=== PATIENT | female | born 1965 | race Caucasian/White ===

== ENCOUNTER 2022-07-12 10:47 | Day surgery (SDC) | payer OTHER ==
[2022-07-12] MEDS ORDERED: LIDOCAINE HCL 2% 100 MG/5 ML IJ ONE (10:48)
[2022-07-12 11:10] LABS: HCG URINE TEST NEGATIVE (NEGATIVE)
[2022-07-12] MEDS ORDERED: DIPRIVAN 200 MG/20 ML IV ONE ×2 (12:05→12:12)
[2022-07-12] MEDS ORDERED: Lactated Ringers 1,000 ML IV ONE (15:05)
--- NOTE | 2022-07-12 19:06 | XRAY ---
Indication: Bilateral L4-S1 MBB. Intraoperative fluoroscopy provided for 20 seconds. Single digital spot image submitted for interpretation demonstrates posterior needle tips projecting over the expected left and right L4-S1 nerve roots. Correlate with intraoperative findings/report.
--- NOTE | 2022-07-12 19:25 | XRAY ---
20 seconds of fluoroscopy was used in surgery for a bilateral L4-S1 MBB.
== END 2022-07-12 12:35 | disposition home or self-care (01) ==
LOC: SDC-PAIN 10:47
PROVIDERS: ATTEND Psychiatry & Neurology Pain Medicine
DX: M47.816 Spondylosis without myelopathy or radiculopathy, lumbar region (principal); Z79.899 Other long term (current) drug therapy
CPT/HCPCS: 64493; 64494; 72020; 77002; 81025; J2704

== ENCOUNTER 2022-09-06 10:48 | Day surgery (SDC) | payer OTHER ==
[2022-09-06] MEDS ORDERED: BUPIVACAINE 0.5% VIAL IJ ONE (10:49)
[2022-09-06] MEDS ORDERED: Depo-Medrol 40 MG/ML IM ONE (10:49)
[2022-09-06 12:23] LABS: HCG URINE TEST NEGATIVE (NEGATIVE)
[2022-09-06] MEDS ORDERED: DIPRIVAN 200 MG/20 ML IV ONE (12:45)
--- NOTE | 2022-09-06 15:10 | XRAY ---
Indication: Bilateral L4-S1 MBB. Intraoperative fluoroscopy provided for 17 seconds. Single digital spot image submitted for interpretation demonstrates posterior needle tips projecting over the expected left and right L4-S1 nerve roots. Correlate with intraoperative findings/report.
--- NOTE | 2022-09-06 15:16 | XRAY ---
17 seconds of fluoroscopy was used in surgery for a bilateral L4-S1 MBB.
[2022-09-06] MEDS ORDERED: Lactated Ringers 1,000 ML IV ONE (16:47)
== END 2022-09-06 13:15 | disposition home or self-care (01) ==
LOC: SDC-PAIN 10:48
PROVIDERS: ATTEND Psychiatry & Neurology Pain Medicine
DX: M47.816 Spondylosis without myelopathy or radiculopathy, lumbar region (principal); Z79.899 Other long term (current) drug therapy
CPT/HCPCS: 64493; 64494; 72020; 77002; 81025; J1030; J2704

== ENCOUNTER 2022-10-18 08:01 | Day surgery (SDC) | payer OTHER ==
[2022-10-18] MEDS ORDERED: Depo-Medrol 40 MG/ML IM ONE (08:02)
[2022-10-18] MEDS ORDERED: LIDOCAINE HCL 1% 50 MG/5 ML VL PF IJ ONE (08:02)
[2022-10-18] MEDS ORDERED: BUPIVACAINE 0.5% VIAL IJ ONE (08:02)
[2022-10-18 08:56] LABS: HCG URINE TEST NEGATIVE (NEGATIVE)
[2022-10-18] MEDS ORDERED: Versed 2 MG/2 ML Injection ONE (09:45)
[2022-10-18] MEDS ORDERED: DIPRIVAN 200 MG/20 ML IV ONE (09:45)
[2022-10-18] MEDS ORDERED: Lactated Ringers 1,000 ML IV ONE (10:26)
--- NOTE | 2022-10-18 11:33 | XRAY ---
Indication: Right L4-S1 RFA. Intraoperative fluoroscopy provided for 33 seconds. 3 digital spot images submitted for interpretation demonstrates posterior needle tips projecting over the expected right L4-S1 nerve roots. Correlate with intraoperative findings/report. Incidental overlying ventral hernia mesh graft.
--- NOTE | 2022-10-18 13:58 | XRAY ---
33 seconds of fluoroscopy was used in surgery for a right L4-S1 RFA.
== END 2022-10-18 10:17 | disposition home or self-care (01) ==
LOC: SDC-PAIN 08:01
PROVIDERS: ATTEND Psychiatry & Neurology Pain Medicine
DX: M47.816 Spondylosis without myelopathy or radiculopathy, lumbar region (principal); Z79.899 Other long term (current) drug therapy
CPT/HCPCS: 64635; 64636; 72100; 77002; 81025; 82947; J1030; J2001; J2250; J2704

== ENCOUNTER 2023-10-17 08:23 | Day surgery (SDC) | payer OTHER ==
[2023-10-17] MEDS ORDERED: Xylocaine-Mpf 2% 5 Ml Vial IJ ONE (08:24)
[2023-10-17] MEDS ORDERED: Lactated Ringers 1,000 ML IV ONE (09:38)
[2023-10-17] MEDS ORDERED: DIPRIVAN 200 MG/20 ML IV ONE (09:51)
--- NOTE | 2023-10-17 12:01 | XRAY ---
Indication: Right C2-C4 MBB. Intraoperative fluoroscopy provided for 16 seconds. 2 digital spot images submitted for interpretation demonstrates posterior needle tips projecting over expected right C2-C4 nerve roots. Correlate with intraoperative findings/report.
--- NOTE | 2023-10-17 12:05 | XRAY ---
16 seconds of fluoroscopy was used in surgery for a right C2-C4 MBB.
== END 2023-10-17 10:17 ==
LOC: SDC-PAIN 08:23
PROVIDERS: ATTEND Psychiatry & Neurology Pain Medicine
DX: M47.812 Spondylosis without myelopathy or radiculopathy, cervical region (principal); E11.9 Type 2 diabetes mellitus without complications
CPT/HCPCS: 64479; 64480; 72040; 77002; 82947; J2704

== ENCOUNTER 2024-03-05 09:28 | Day surgery (SDC) | payer OTHER ==
[2024-03-05] MEDS ORDERED: BUPIVACAINE 0.5% VIAL IJ ONE (09:29)
[2024-03-05] MEDS ORDERED: dexAMETHasone sodium phosphate IJ ONE (09:29)
[2024-03-05] MEDS ORDERED: propofoL IV ONE ×2 (11:03→11:13)
--- NOTE | 2024-03-05 12:23 | XRAY ---
Indication: Right C2-C4 MBB. Intraoperative fluoroscopy provided for 20 seconds. 3 digital spot image submitted for interpretation demonstrates posterior needle tips projecting over expected right C2-C4 nerve roots. Correlate with intraoperative findings/report.
--- NOTE | 2024-03-05 12:49 | XRAY ---
20 seconds of fluoroscopy was used in surgery for a right C2-C4 MBB.
== END 2024-03-05 11:38 | disposition home or self-care (01) ==
LOC: SDC-PAIN 09:28
PROVIDERS: ATTEND Psychiatry & Neurology Pain Medicine
DX: M47.812 Spondylosis without myelopathy or radiculopathy, cervical region (principal); E11.9 Type 2 diabetes mellitus without complications
CPT/HCPCS: 64490; 64491; 72040; 77002; 82947; J1100; J2704

== ENCOUNTER 2024-05-07 07:03 | Day surgery (SDC) | payer OTHER ==
[~2024-05-07 07:03] MED LIST: Lactated Ringers 500 ML IV ONE
[2024-05-07] MEDS ORDERED: dexAMETHasone sodium phosphate IJ ONE (07:04)
[2024-05-07] MEDS ORDERED: BUPIVACAINE 0.5% VIAL IJ ONE (07:04)
[2024-05-07] MEDS ORDERED: LIDOCAINE HCL 1% AMPUL 5 ML IJ ONE (07:04)
[2024-05-07] MEDS ORDERED: propofoL IV ONE ×2 (08:01→08:09)
--- NOTE | 2024-05-07 11:41 | XRAY ---
Indication: Right C2-C4 RFA. Intraoperative fluoroscopy provided for 17 seconds. 3 digital spot image submitted for interpretation demonstrate posterior needle tips projecting over expected right C2-C4 nerve roots. Correlate with intraoperative findings/report.
--- NOTE | 2024-05-07 12:55 | XRAY ---
17 seconds of fluoroscopy was used in surgery for a right C2-C4 RFA.
== END 2024-05-07 08:40 | disposition home or self-care (01) ==
LOC: SDC-PAIN 07:03
PROVIDERS: ATTEND Psychiatry & Neurology Pain Medicine
DX: M47.812 Spondylosis without myelopathy or radiculopathy, cervical region (principal); E11.9 Type 2 diabetes mellitus without complications
CPT/HCPCS: 64633; 64634; 72040; 82947; J1100; J2704

== ENCOUNTER 2024-09-04 11:31 | Day surgery (SDC) | payer OTHER ==
[2024-09-04] MEDS ORDERED: Depo-Medrol 40 MG/ML IM ONE (11:32)
[2024-09-04] MEDS ORDERED: LIDOCAINE HCL 1% 50 MG/5 ML VL IJ ONE (11:32)
[2024-09-04] MEDS ORDERED: BUPIVACAINE 0.5% VIAL IJ ONE (11:32)
--- NOTE | 2024-09-04 15:20 | XRAY ---
Indication: Right knee injection. Intraoperative fluoroscopy provided for 9 seconds. Single digital spot image submitted for interpretation demonstrates needle tip projecting over right femur intercondylar notch. Small amount of contrast injected for needle tip placement. Correlate with intraoperative findings/report.
--- NOTE | 2024-09-04 22:15 | XRAY ---
9 seconds of fluoroscopy was used in surgery for a right intra-articular knee injection.
== END 2024-09-04 13:47 | disposition home or self-care (01) ==
LOC: SDC-PAIN 11:31
PROVIDERS: ATTEND Psychiatry & Neurology Pain Medicine
DX: M17.11 Unilateral primary osteoarthritis, right knee (principal); E88.810 Metabolic syndrome